=== PATIENT | male | born 1930 | race Caucasian/White ===

== ENCOUNTER 2018-11-24 18:09 | Emergency (ER) | payer BC, MEDICARE ==
[2018-11-24 18:46] LABS: #Basophils 0.1 thou/uL (0.0-0.2); #Eosinphils 0.4 thou/uL (0.0-0.7); #Lymphocytes 2.7 thou/uL (1.20-3.40); #Neutrophils 6.2 thou/uL (1.40-6.50); %Basophils 0.7 % (0.0-1.0); %Eosinophils 3.9 % (0.0-10.0); %Lymphocytes 26.1 % (21.0-51.0); %Neutrophils 59.4 % (42.0-75.0); Hemoglobin 12.8 g/dL (14.0-18.0); Mean Corpuscular HGB CONC 33.4 g/dL (32.0-36.0); Mean Corpuscular Hemoglobin 31.6 pg (27.0-31.0); Mean Corpuscular Volume 94.5 fL (78.0-98.0); Mean Platelet Volume 8.3 fL (7.4-10.4); Platelet Count 290 thou/uL (130-400); RBC Distribution Width 11.5 % (11.5-14.5); Red Blood Cell (RBC) Count 4.07 mill/uL (4.70-6.10); White Blood Cell (WBC) Count 10.4 thou/uL (4.8-10.8)
--- NOTE | 2018-11-24 18:52 | RAD ---
AP VIEW CHEST: 11/24/18 HISTORY: Fall, altered mental status. AP view chest is obtained on 11/24/18. Comparison made to previous exam from 10/16/16. AP view chest demonstrates ectasia and calcification of the aorta. Mild pulmonary vascular congestion seen. No evidence of effusions, pneumonia or pneumothorax seen. IMPRESSION: Unremarkable AP view chest. POS: [facility]
[2018-11-24 19:15] LABS: ALT (SGPT) 8 U/L (8-55); AST (SGOT) 11 U/L (5-34); Albumin 3.9 g/dL (3.4-4.8); Alkaline Phosphatase 91 U/L (40-150); Anion Gap 14 mmol/L (10-20); BUN (Urea Nitrogen) 28 mg/dL (8.4-25.7); Bilirubin, Total 0.7 mg/dL (0.2-1.2); Calc. Creatinine Clearance 0 mL/min (70-130); Calcium 8.6 mg/dL (7.8-10.44); Carbon Dioxide 28 mmol/L (23-31); Chloride 102 mmol/L (98-107); Estimated GFR-MDRD 42; Globulin 3.3 g/dL (2.4-3.5); Glucose 112 mg/dL (83-110); Potassium 3.3 mmol/L (3.5-5.1); Protein, Total 7.2 g/dL (5.8-8.1); Sodium 141 mmol/L (136-145)
--- NOTE | 2018-11-24 19:32 | CT ---
CT BRAIN 11/24/18 HISTORY: Confusion. Fall. Noncontrast enhanced CT images of the brain is obtained. Brain and bone windows obtained. CT images of the brain demonstrate diffuse cortical atrophy. An area of encephalomalacia seen in the right frontal lobe. No evidence of acute intracranial masses, hemorrhages, or strokes seen. Ventricle s are of normal size. IMPRESSION: Cortical atrophy and deep white matter ischemic changes. No acute intracranial abnormality seen. POS: [facility]
[2018-11-24] MEDS ORDERED: Dexamethasone 10 MG/ML VIAL ONE (20:03)
[2018-11-24 20:58] LABS: Bilirubin Negative (Negative); Blood, Urine Negative (Negative); Clarity CLEAR (Clear); Glucose, Urine (Dipstick) Negative (Negative); Leukocyte Negative (Negative); Nitrite Negative (Negative); Protein, Urine (Dipstick) Negative (Neg-Trace); Specific Gravity, Urine 1.018 (1.002-1.036); pH, Urine 5.5 (5.0-9.0)
== END 2018-11-24 22:12 | disposition home or self-care (01) ==
LOC: ERS 18:09
DX: J44.1 Chronic obstructive pulmonary disease with (acute) exacerbation (principal); E78.5 Hyperlipidemia, unspecified; I10 Essential (primary) hypertension; Z87.891 Personal history of nicotine dependence; Z79.82 Long term (current) use of aspirin; Z79.899 Other long term (current) drug therapy
CPT/HCPCS: 70450; 71045; 80053; 81003; 84484; 85025; 87086; 93005; 94640; J1100; J7620